=== PATIENT | female | born 1965 | race Caucasian/White ===

== ENCOUNTER 2017-01-02 08:49 | Day surgery (SDC) | payer BC ==
[2016-12-30 20:45] LABS: HEMOGLOBIN 13.5 g/dL (12.0-16.0)
[2016-12-30 20:46] LABS: HEMATOCRIT 40.4 % (36.0-48.0)
[2016-12-30 20:52] LABS: BUN (BLOOD UREA NITROGEN) 7 MG/DL (6-23); CALCIUM, SERUM 9.2 MG/DL (8.5-10.4); CHLORIDE, SERUM 106 MMOL/L (96-112); CO2 (CARBON DIOXIDE) 28 MMOL/L (24-34); GFR AFRICAN AMERICAN 115 ML/MIN (>=60); GFR NON AFRICAN AMERICAN 99 ML/MIN (>=60); GLUCOSE, SERUM 80 MG/DL (60-99); SODIUM, SERUM 141 MMOL/L (135-148)
--- NOTE | ~2017-01-02 | OP ---
Record Of Operation [facility] [address] [place] 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 NAME OF OPERATION: 1. Excision of right ear tragus basal cell carcinoma with frozen sections, wide excision. 2. Wide re-excision of right ear tragal basal cell carcinoma, with circumferential and deep margins including tragal cartilage, sent for permanent section. 3. Reconstruction of right ear tragal and preauricular cheek defect with cheek rotation flap. FINDINGS: Initial 2.1 cm tall x 1.7 cm wide excision; frozen sections showed margins felt to be clear but extremely close, just a fraction of a millimeter clear; the pathologist and I both agreed further deep margins and circumferential margins needed, because pathologist felt this was an aggressive micronodular basal cell; reexcision of margins including tragus resulted in a 2.6 cm tall x 2.1 cm wide defect of the right ear, tragus, and preauricular cheek. INDICATIONS: This 51-year-old female was referred because of a biopsy proven basal cell carcinoma of the right tragus. This has been present for over a year before this was biopsied. She was seen in consultation and we discussed the pros and cons, alternatives, benefits, risks, limitations, and complications associated with excision with frozen section and reconstruction. We talked about the risk of infection, suture reaction, recurrence of tumor, necessity to excise the tragal cartilage with resulting deformity. She now presents for excision with frozen section and reconstruction of the right tragal basal cell carcinoma. No guarantees expressed. She understands and wishes to proceed. Proper consent obtained. DESCRIPTION OF PROCEDURE: She was taken into the operating room and given general oral endotracheal anesthesia in the supine position. Her hair was taped out of the way and the right ear and periauricular scalp and the entire right side of the face and neck were prepped with Hibiclens and saline followed by isopropyl alcohol. None of these solutions got down into her ear canal. Sterile drapes were applied. The 10 power operating microscope was used to evaluate the skin and this tumor was not well circumscribed. The tumor was marked out for the apparent extent of the tumor, which was on the anterior surface and on the posterior surface of the tragus. After marking what I felt was the tumor then 3 mm margin of safety was marked out completely around this. The ear and preauricular area were injected with 0.5% Marcaine with 1:200,000 epinephrine and 1% Xylocaine with 1:100,000 epinephrine. Five minutes elapsed for vasoconstriction. According to the markings, the #15 blade was used to remove this tumor all the way down to the level of the tragal cartilage. Before the tumor was removed from the tumor bed, a long Record Of Operation [facility] [id number] [facility] [place]. [address] NAME: DAYSI PEREZ : 61 STATUS : [facility]#: [id number] AGE: 51 ADM/REG DATE : 01/02/17 MR#: [id number] REPORT SERV DATE: 01/02/17 DICTATED BY: Stalin DENTON DATE: 01/02/17 REPORT STATUS : Draft TRANSCRIBED BY: JACK DATE: 01/02/17 suture was placed at 12 o'clock and a short suture placed at 6 o'clock. The pathologist was brought into the room for orientation and to perform frozen sections. The pathologist returned stating that this was an aggressive micronodular basal cell carcinoma and he felt that the margins were probably clear, but they were extremely close and we both agreed that wide circumferential and deep margins needed to be removed including the tragal cartilage. He was in agreement. Markings were made to obtain an additional 3 mm margin around the resection site circumferentially and this included removing the tragus and deep subcutaneous tissue in the preauricular cheek area in continuity with the tragus. This was done with a #15 blade. Before all this was removed from the tumor bed, a long suture was placed at 12 o'clock and a short suture was placed at 6 o'clock. The pathologist was brought into the room for orientation and this was going to be processed for permanent pathology. Next, a rotation flap was developed in the lateral cheek anterior to the defect. The incision was extended down to the ear lobule in the immediate preauricular cheek. This incision was extended superiorly at the anterior aspect of the pre-existing tragus curving it in a typical fashion for a rhytidectomy where the ear meets the preauricular area. This flap was raised. This was rotated posterior superiorly. Excess was cut off near the ear lobule and the upper helix. This rotation flap was secured with 4-0 and 5-0 Vicryl. Further 6-0 Vicryl was used near the ear lobule. The flap was cut to fit and sutured in place with 6-0 Prolene in the area of the previous tragus. Dermabond sealed the skin superior and inferior to the pre-existing tragal area. Wounds were cleansed with hydrogen peroxide and dried. Mastisol and paper tape were applied in the preauricular area. Telfa was placed around the ear and the Telfa was placed in the ear canal after the right ear was irrigated clear of any blood. She was then awakened, extubated, and taken to recovery room in good condition having tolerated the procedure well. Home going instructions included soft diet. She is to keep the dressing dry and intact. She can remove the white dressing in two days and clean the external auditory meatus with Q-tip and peroxide as needed. Prescriptions were written for hydrocodone 7.5 mg/325 APAP, #25 one p.o. q.4-6 h. p.r.n. pain; generic Zofran 8 mg ODT, #9 one dissolved orally q.6 h. p.r.n. nausea or vomiting; cephalexin 500 mg #20, 1 p.o. b.i.d. until all taken (antibiotic). Recheck in the office in six days. DALIAL/MODL Stalin Denton M.D. / [id number] CC: Stalin Denton M.D. Record Of [address] [address] NAME: DAYSI PEREZ : 61 STATUS : [facility] PAT#: [id number] AGE: 51 ADM/REG DATE : 01/02/17 MR#: [id number] REPORT SERV DATE: 01/02/17 DICTATED BY: Stalin DENTON DATE: 01/02/17 REPORT STATUS : Draft TRANSCRIBED BY: JACK DATE: 01/02/17 Henrry Johnson M.D.
[~2017-01-02 08:49] MED LIST: AMB10 PO; CELEXA10 PO; CENTRUM TAB1 TAB PO; DITRO5 PO; ECHINACEA1 PO; ESTRACE1 MG PO; ESTRADIOL2 MG OR; MULTI VITS PO; NEXIUM40 PO; POT GLUCONAT550 M1; WELLSR150 PO
== END 2017-01-02 17:18 | disposition home or self-care (01) ==
LOC: SDC 08:49
PROVIDERS: Specialist
PROC: 0HX2XZZ Transfer Right Ear Skin, External Approach (ICD-10-PCS; principal; 2017-01-02 10:15)
DX: C44.222 Squamous cell carcinoma of skin of right ear and external auricular canal (principal); D49.2 Neoplasm of unspecified behavior of bone, soft tissue, and skin; D64.9 Anemia, unspecified; K21.9 Gastro-esophageal reflux disease without esophagitis; F32.9 Major depressive disorder, single episode, unspecified; F41.9 Anxiety disorder, unspecified; Z90.710 Acquired absence of both cervix and uterus; Z87.891 Personal history of nicotine dependence
CPT/HCPCS: 36415; 80048; 85014; 85018; 88305; 88331; 88332; 93005; A9270-GY; J0690; J2250; J2405; J2710; J3010